=== PATIENT | male | born 1950 | race Caucasian/White ===

== ENCOUNTER 2017-08-24 11:30 | Emergency (ER) | payer MEDICARE ==
[2017-08-24 12:48] LABS: CALCIUM 9.1 mg/dL (8.5-10.1); CARBON DIOXIDE 29.6 mmol/L (21-32); CHLORIDE SERUM 105 mmol/L (98-107); GFR1 > 60 mL/min; GLUCOSE SERUM 159 mg/dL (74-106); POTASSIUM SERUM 4.3 mmol/L (3.5-5.1); SODIUM SERUM 140 mmol/L (136-145)
[2017-08-24 12:55] LABS: BASOPHIL % 0.5 % (0-2); PLATELET COUNT 190 x10^3mcL (130-400)
[2017-08-24 12:57] LABS: RED CELL DISTRIBUTION WIDTH 15.9 % (11.5-14.5)
[2017-08-24 13:01] LABS: ALBUMIN 3.6 g/dL (3.4-5.0); ALKALINE PHOSPHATASE 243 U/L (46-116); ALT/SGPT 34 U/L (16-63); AST/SGOT 32 U/L (15-37); BILIRUBIN TOTAL 0.48 mg/dL (0.20-1.00); T4(THYROXINE) 10.8 ug/dL (4.7-13.3); TOTAL PROTEIN, SERUM 7.3 g/dL (6.4-8.2)
[2017-08-24 14:40] VITALS: BP 123/77
== END 2017-08-24 15:22 | disposition home or self-care (01) ==
LOC: ED 11:30
PROVIDERS: Emergency Medicine
DX: G40.909 Epilepsy, unspecified, not intractable, without status epilepticus (principal)
CPT/HCPCS: 83880; J7030